=== PATIENT | female | born 1945 | race Two or more races ===

== ENCOUNTER 2016-08-23 07:19 | Day surgery (SDC) | payer MEDICARE ==
[2016-08-23] MEDS ORDERED: PROPOFOL 10 MG/ML VIAL IV ONE (14:25)
[2016-08-23] MEDS ORDERED: MIDAZOLAM HCL 2MG/2ML VIAL IV ONE (14:25)
[2016-08-23] MEDS ORDERED: LIDOCAINE 2% MDV (20MG/ML) 20ML VIAL IV ONE (14:25)
--- NOTE | 2016-08-26 14:11 | Operative Note ---
DATE OF SURGERY: 08/23/2016 SURGEON: Jessica Tavares MD OPERATION: COLONOSCOPY. INDICATIONS: This is a 71-year-old female with history of colon polyps who presented for surveillance colonoscopy. POSTOPERATIVE DIAGNOSES: 1. Left-sided colonic diverticulosis. 2. Grade 1 internal hemorrhoids. ANESTHESIA: Sedation is per Anesthesia. Pulse oximetry was monitored throughout the procedure to maintain O2 saturation of 90% or greater. Supplemental oxygen was administered via nasal cannula. Cardiac and vital signs were monitored throughout the duration of the procedure, and they were stable. The procedure of colonoscopy and risks and alternatives of the procedure, including the risk of bleeding and perforation, among others, were explained to the patient who voiced understanding and agreed to have the procedure done. Physical examination was performed, and the patient was found stable for sedation. PROCEDURE: The patient was placed in the left lateral position and sedation was initiated. A digital rectal exam was performed and showed some mild external hemorrhoids with no palpable rectal masses. An Olympus PCF-180AL colonoscope was then inserted into the rectum under direct visualization. It was advanced to the cecum without difficulty. The ileocecal valve and appendiceal orifice were identified and photographed. The colonic mucosa was carefully examined upon introduction of the colonoscope. There were scattered diverticula noted in the sigmoid and descending colon. There were no other lesions noted. The colonoscope was then withdrawn while carefully examining the colonic mucosal surfaces. No other lesions were noted. In the rectum, retroflexion was performed and grade 1 internal hemorrhoids were noted. The colonoscope was then withdrawn and the procedure was terminated. The patient tolerated the procedure well without any immediate complications. She remained with stable vital signs and was transferred to the recovery room. RECOMMENDATIONS: 1. The patient should be on a high-fiber diet. 2. The patient is to have a repeat colonoscopy for surveillance in 5 years. Thank you for allowing me to participate in the care of your patient. Jessica Tavares MD CC: Raine THAKUR
== END 2016-08-23 09:20 | disposition home or self-care (01) ==
LOC: HOP 07:19
PROVIDERS: ATTEND Internal Medicine Gastroenterology
DX: Z86.010 Personal history of colon polyps (principal); K57.30 Diverticulosis of large intestine without perforation or abscess without bleeding; K64.0 First degree hemorrhoids; E11.9 Type 2 diabetes mellitus without complications; I10 Essential (primary) hypertension; Z79.82 Long term (current) use of aspirin
CPT/HCPCS: 00810; G0105

== ENCOUNTER 2017-10-09 12:13 | Emergency (ER) | payer MEDICARE ==
[2017-10-09] MEDS ORDERED: ONDANSETRON HCL IV 4 MG/2 ML VIAL IV ONE (12:33)
[2017-10-09] MEDS ORDERED: 0.9 % SODIUM CHLORIDE 1,000 ML BAG IV ONE (12:33)
--- NOTE | 2017-10-09 12:37 | Emergency Department Record ---
History of Present Illness - General Chief complaint: Flank Pain Stated complaint: FLANK PAIN Time Seen by Provider: 10/09/17 12:29 Source: Patient Mode of Arrival: Ambulatory Limitations: No limitations - History of Present Illness Initial comments: The patient is here due to L flank and abdominal pain for 3 days. The pain is now getting worse per the patient. She describes it as a sharp stabbing pain that intermittently radiates to the L groin. She denies any fever, chills, nausea, vomiting, diarrhea or any previous abdominal surgeries. MD Complaint: Other Onset/Timin -: Days(s) Location: Other Severity scale (1-10): >10 Quality: Aching Consistency: Constant Improves with: None Worsens with: None Patient : No Associated Symptoms: Nausea/vomiting - Related Data Previous Rx's Medication Instructions Recorded Ciprofloxacin HCl [Cipro] 500 mg PO Q12HR #14 tablet 10/09/17 Metronidazole [Flagyl] 500 mg PO TID #21 tablet 10/09/17 Naproxen [Naprosyn] 250 mg PO BID #14 tablet 10/09/17 Allergies Allergy/AdvReac Type Severity Reaction Status Date / Time azithromycin [From Zithromax] Allergy Intermediate hives Verified 10/09/17 12:24 prednisone Allergy Mild RASH Verified 10/09/17 12:24 atorvastatin calcium AdvReac Severe elevated Verified 10/09/17 12:24 [From Lipitor] liver enzymes >3 times normal Iodinated Contrast- Oral and AdvReac HIVES Verified 10/09/17 12:24 IV Dye Travel Screening - Travel/Exposure Within Last 30 Days Have you traveled within the last 30 days?: Yes Location Detail:: [place] - Travel/Exposure Within Last Year Have you traveled outside the [place] in the last year?: No - Additonal Travel Details Have you been exposed to anyone with a communicable illness?: No - Travel Symptoms Symptom Screening: None Review of Systems Constitutional: Denies: Chills, Fever Eyes: Denies: Eye discharge ENT: Denies: Congestion Respiratory: Denies: Cough, Dyspnea Past Medical History - SOCIAL HISTORY Smoking Status: Never smoker Alcohol Use: None Drug Use: None - RESPIRATORY Hx Respiratory Disorders: Yes Hx Bronchitis: Yes Hx COPD: Yes Hx Sleep Apnea: Yes Hx of CPAP: No - CARDIOVASCULAR Hx Cardio Disorders: No Hx Hypertension: Yes - NEURO Hx Neuro Disorders: No - GI Hx GI Disorders: Yes Hx Reflux: Yes Comment:: fatty liver - Hx Genitourinary Disorders: Yes Hx Bladder Problem: Yes Hx Renal Disease: Yes Hx UTI: Yes - ENDOCRINE Hx Endocrine Disorders: Yes Hx Diabetes: Yes (type 2) - MUSCULOSKELETAL Hx Musculoskeletal Disorders: Yes Hx Arthritis: Yes - PSYCH Hx Psych Problems: No - HEMATOLOGY/ONCOLOGY Hx Hematology/Oncology Disorders: Yes Hx Anemia: Yes Family Medical History Any Significant Family History?: No Hx Diabetes: Mother Hx Kidney Disease: Father Physical Exam - General General Appearance: Alert, Oriented x3, Cooperative, No acute distress - Head Head exam: Atraumatic, Normocephalic, Normal inspection - Eye Eye exam: Normal appearance, PERRL - ENT Throat exam: Normal inspection. negative: Tonsillar erythema, Tonsillar exudate - Neck Neck exam: Normal inspection, Full ROM. negative: Tenderness - Respiratory Respiratory exam: Normal lung sounds bilaterally. negative: Respiratory distress - Cardiovascular Cardiovascular Exam: Regular rate, Normal rhythm, Normal heart sounds - GI/Abdominal GI/Abdominal exam: Soft, Normal bowel sounds, Tenderness (There is significant LUQ and LLQ tenderness.). negative: Guarding, Rebound, Rigid - Extremities Extremities exam: Normal inspection, Full ROM, Normal capillary refill. negative: Tenderness Course Vital Signs 10/09/17 12:14 Temperature 98.1 F Pulse Rate 79 Respiratory 18 Rate Blood Pressure 159/90 Pulse Ox 99 - Reevaluation(s) Reevaluation #1: The patient is doing very well at this time and is pain free. I did discuss the need for home oral Abx's due to the Diverticulitis. She is to see her family doctor next week as directed. 10/09/17 14:14 Medical Decision Making - Data Complexity MDM Data: Labs Ordered and/or Reviewed, X-Ray Ordered and/or Reviewed - Lab Data Result diagrams: 10/09/17 12:50 10/09/17 12:50 - Radiology Data Radiology results: Report reviewed (CT: Sigmoid Diverticulitis, no free air, abscess or phelgmon.) Disposition Disposition: Discharge Clinical Impression: Diverticulitis large intestine Qualifiers: Diverticulitis bleeding: without bleeding Diverticulitis complication: unspecified complication status Qualified Code(s): K57.32 - Diverticulitis of large intestine without perforation or abscess without bleeding Disposition: Home, Self-Care Condition: (2) Stable Instructions: Diverticulitis (ED) Additional Instructions: Please take the Naprosyn for pain and take the Cipro and Flagyl as directed. Please see your family doctor next week for recheck and also to have an evaluation for Hep C. Return to the ER for any worsening pain, fever, or vomiting. Prescriptions: Ciprofloxacin HCl [Cipro] 500 mg PO Q12HR #14 tablet Metronidazole [Flagyl] 500 mg PO TID #21 tablet Naproxen [Naprosyn] 250 mg PO BID #14 tablet Forms: Patient Portal Access Time of Disposition: 14:18 Quality - Quality Measures Quality Measures: N/A - Blood Pressure Screening View Details: Yes Does Patient Have Any of the Following: Active Dx of HTN Blood Pressure Classification: Hypertensive Reading Systolic Measurement: 159 Diastolic Measurement: 90 Screening for High Blood Pressure: Patient Exclusion, Hx of HTN [[id number]]
[2017-10-09 12:58] LABS: BASO % 0.2 % (0-6); EOS % 1.6 % (0-6); GRAN % 73.3 % (47-80); HEMOGLOBIN 12.4 gm/dl (11.6-16.0); LYMPH % 17.3 % (16-45); MEAN CELL VOLUME 91.3 fl (81-97); MEAN CORPUSCULAR HEMOGLOBIN 29.8 pg (27-33); MEAN CORPUSCULAR HGB CONC 32.6 g/dl (32-36); MEAN PLATELET VOLUME 11.4 fl (7.4-10.4); MONO % 7.6 % (0-9); RED BLOOD COUNT 4.16 M/uL (3.80-5.40); RED CELL DISTRIBUTION WIDTH 13.7 % (11.5-14.5); WHITE BLOOD COUNT W/O DIFF 5.5 K/uL (4.2-12.2)
[2017-10-09 13:05] LABS: URINE APPEARANCE CLEAR; URINE BILIRUBIN NEGATIVE (NEGATIVE); URINE BLOOD TRACE-I (NEGATIVE); URINE COLOR YELLOW; URINE GLUCOSE (UA) NEGATIVE (NEGATIVE); URINE KETONE NEGATIVE (NEGATIVE); URINE LEUKOCYTE ESTERASE NEGATIVE (NEGATIVE); URINE NITRITE NEGATIVE (NEGATIVE); URINE PROTEIN NEGATIVE (NEGATIVE); URINE UROBILINOGEN 0.2 E.U./dL (0.20 - 1.00)
[2017-10-09 13:07] LABS: BLOOD UREA NITROGEN 15 mg/dL (8-23)
[2017-10-09 13:08] LABS: CREATININE 0.7 mg/dL (0.5-0.9); EST GLOMERULAR FILTRATION RATE > 60 mL/min; TOTAL PROTEIN 7.1 g/dL (6.6-8.7)
[2017-10-09 13:10] LABS: GLUCOSE,RANDOM 100 mg/dL (74-109); PLATELET COUNT 99 K/uL (130-400)
[2017-10-09] MEDS ORDERED: KETOROLAC 30 MG/ML VIAL IVP ONE (13:12)
[2017-10-09 13:13] LABS: ALBUMIN 4.1 g/dL (4.0-5.0); ALKALINE PHOSPHATASE 126 U/L (35-104); ALT/SGPT 48 U/L (<33); AST/SGOT 58 U/L (10.0-35.0); LIPASE 31 U/L (13-60)
[2017-10-09 13:14] LABS: BILIRUBIN,DIRECT < 0.2 mg/dL (0-0.3)
[2017-10-09 13:15] LABS: URINE EPITHELIAL CELLS 0 - 2 (FEW); URINE RBC 0 - 2 (NONE SEEN); URINE WBC 0 - 2 (0-2/hpf)
[2017-10-09] MEDS ORDERED: ERTAPENEM SODIUM 1 G in 0.9 % SODIUM CHLORIDE 100ML 100 ML IVPB ONE (14:06)
--- NOTE | 2017-10-10 21:59 | CT SCAN REPORT ---
EXAM: CT SCAN ABDOMEN/PELVIS WO CONTRAST HISTORY: LEFT FLANK PAIN. TECHNIQUE: CT of the abdomen/pelvis was performed without oral or IV contrast. This limits evaluation of bowel and solid visceral organs. COMPARISON: None. FINDINGS: Limited evaluation of the lung bases is unremarkable. Osseous structures are grossly intact. Slightly nodular contour to the liver suggesting cirrhotic change. Status post cholecystectomy. The spleen, adrenal glands, and pancreas are grossly unremarkable. There is a right pelvic kidney. Punctate nonobstructing left renal calculi. No obstructing calculus. No definitive hydronephrosis. The patient is status post hysterectomy. A small amount of air in the vaginal cuff. Punctate calcification near the vaginal cuff. Sigmoid diverticulosis with wall thickening of the sigmoid colon and surrounding inflammation, consistent with acute diverticulitis. No discrete abscess. No free air or free fluid. IMPRESSION: 1. ACUTE SIGMOID DIVERTICULITIS. NO ABSCESS, FREE AIR, OR FREE FLUID. 2. RIGHT PELVIC KIDNEY. NONOBSTRUCTING LEFT RENAL CALCULI. 3. NODULAR, CIRRHOTIC CHANGE TO THE LIVER. JOB NUMBER: [id number] [facility]
== END 2017-10-09 14:58 | disposition home or self-care (01) ==
LOC: ER 12:13
DX: K57.32 Diverticulitis of large intestine without perforation or abscess without bleeding (principal); R11.2 Nausea with vomiting, unspecified; I10 Essential (primary) hypertension; E11.9 Type 2 diabetes mellitus without complications
CPT/HCPCS: 99284 ×2; 96365; 96375; 96361; 83690; 85025; 80076; 80048; 81001; 74176; J1335; J1885; J2405; J7030